=== PATIENT | male | born 1980 | race Caucasian/White ===

== ENCOUNTER 2019-04-21 12:41 | Inpatient (IN) | payer SELFPAY ==
[~2019-04-21] VITALS: Ht 180.3 cm; Wt 73.5 kg
[2019-04-21 14:09] LABS: AMPHET/METH SCREEN,URINE NEGATIVE (NEGATIVE); BARBITURATE SCREEN, URINE NEGATIVE (NEGATIVE); BENZODIAZEPINES SCREEN,URINE NEGATIVE (NEGATIVE); CANNABINOID SCREEN,URINE NEGATIVE (NEGATIVE); COCAINE SCREEN,URINE NEGATIVE (NEGATIVE); METHADONE SCREEN, URINE NEGATIVE (NEGATIVE); OPIATE SCREEN,URINE NEGATIVE (NEGATIVE)
[2019-04-21 14:10] LABS: PHENCYCLIDINE SCREEN,URINE NEGATIVE (NEGATIVE)
[2019-04-21] MEDS ORDERED: PERTUSS(ACELL),DIPH,TET VAC/PF 0.5 ML VIAL IM ONE (14:45)
[2019-04-21] MEDS ORDERED: SODIUM CHLORIDE 0.9% 250 ML IRRIG SOLUTION BOTTLE IRRIG ONE (14:45)
[2019-04-21] MEDS ORDERED: IBUPROFEN 600 MG TABLET PO ONE (14:45)
[2019-04-21] MEDS ORDERED: LORazepam 2 MG TABLET PO PRN (17:15)
[2019-04-21] MEDS ORDERED: HALOPERIDOL 5 MG TABLET PO PRN (17:15)
[2019-04-21] MEDS ORDERED: ZOLPIDEM TARTRATE 10 MG TABLET PO PRN (17:15)
[2019-04-21 22:06] VITALS: BP 127/87
[2019-04-21] MEDS ORDERED: PNEUMOCOCCAL VACCINE POLYVALENT 0.5 ML VIAL [PPSV23] IM ONE (22:30)
[2019-04-22 08:00] VITALS: BP 113/74
[2019-04-22] MEDS: BACITRACIN 28.4 GM OINTMENT TP SCH ×2 (08:37→16:42)
[2019-04-22 10:18] VITALS: BP 113/74
[2019-04-22] MEDS ORDERED: PETROLATUM,WHITE 28 GM JELLY TP PRN (12:45)
[2019-04-22] MEDS ORDERED: GuaiFENesin/D-METHORPHAN [SUGAR-FREE] 200-20MG/10 ML SYRUP UDCUP PO PRN (12:45)
[2019-04-22] MEDS ORDERED: DOCUSATE SODIUM 100 MG CAPSULE PO PRN (12:45)
[2019-04-22] MEDS ORDERED: IBUPROFEN 400 MG TABLET PO PRN (12:45)
[2019-04-22] MEDS ORDERED: NICOTINE 14 MG/24 HOUR PATCH TD PRN (12:45)
[2019-04-22] MEDS ORDERED: MAGNESIUM HYDROXIDE SUSPENSION 30 ML UDCUP PO PRN (12:45)
[2019-04-22] MEDS ORDERED: ONDANSETRON HCL 4 MG TABLET PO PRN (12:45)
[2019-04-22] MEDS ORDERED: CloNIDine HCL 0.1 MG TABLET PO PRN (12:45)
[2019-04-22] MEDS ORDERED: LOPERAMIDE HCL 2 MG CAPSULE PO PRN (12:45)
[2019-04-22] MEDS ORDERED: ACETAMINOPHEN 325 MG TABLET PO PRN (12:45)
[2019-04-22] MEDS ORDERED: MAG HYDROX/AL HYDROX/SIMETH ES 30 ML SUSPENSION UDCUP PO PRN (12:45)
[2019-04-22] MEDS ORDERED: ALBUTEROL SULFATE HFA 90 MCG/PUFF 8 GM INHALER IH PRN (12:45)
[2019-04-22 16:10] VITALS: BP 114/70
[2019-04-23 08:42] VITALS: BP 96/69
[2019-04-23] MEDS: BACITRACIN 28.4 GM OINTMENT TP SCH ×2 (09:00→17:05)
[2019-04-23] MEDS ORDERED: ARIPiprazole 5 MG TABLET PO SCH (09:00)
[2019-04-23] MEDS: ARIPiprazole 5 MG TABLET PO SCH (11:59)
[2019-04-23 16:45] VITALS: BP 110/70
[2019-04-24 08:27] VITALS: BP 122/86
[2019-04-24] MEDS: BACITRACIN 28.4 GM OINTMENT TP SCH ×2 (08:30→16:33)
[2019-04-24] MEDS: ARIPiprazole 5 MG TABLET PO SCH ×2 (08:30→20:18)
[2019-04-24 16:32] VITALS: BP 113/73
[2019-04-24 20:19] VITALS: BP 120/79
[2019-04-25 08:33] VITALS: BP 115/61
[2019-04-25] MEDS: BACITRACIN 28.4 GM OINTMENT TP SCH ×3 (09:00→16:14)
[2019-04-25] MEDS: ARIPiprazole 5 MG TABLET PO SCH ×3 (09:00→20:04)
[2019-04-25 17:00] VITALS: BP 112/78
[2019-04-26] MEDS: BACITRACIN 28.4 GM OINTMENT TP SCH ×2 (08:25→17:00)
[2019-04-26] MEDS: ARIPiprazole 5 MG TABLET PO SCH ×2 (08:25→18:21)
[2019-04-26 16:00] VITALS: BP 130/86
[2019-04-27 08:42] VITALS: BP 123/93
[2019-04-27] MEDS: ARIPiprazole 5 MG TABLET PO SCH (09:00)
[2019-04-27] MEDS: BACITRACIN 28.4 GM OINTMENT TP SCH (09:00)
[2019-04-27] MEDS ORDERED: ARIP5TAB8 PO (10:43)
== END 2019-04-27 14:50 | disposition home or self-care (01) | DRG 885 ==
LOC: EMS 12:41 → 3EC 18:19
DX: F20.0 Paranoid schizophrenia (principal); F17.210 Nicotine dependence, cigarettes, uncomplicated; S01.01XA Laceration without foreign body of scalp, initial encounter; W22.8XXA Striking against or struck by other objects, initial encounter; G44.209 Tension-type headache, unspecified, not intractable; F90.9 Attention-deficit hyperactivity disorder, unspecified type; Y92.89 Other specified places as the place of occurrence of the external cause; Y99.8 Other external cause status; Z81.8 Family history of other mental and behavioral disorders
CPT/HCPCS: 12001; 90715; 99406